=== PATIENT | female | born 1950 | race Caucasian/White ===

== ENCOUNTER 2016-03-15 11:49 | Emergency (ER) | payer OTHER ==
[2016-03-15] MEDS ORDERED: IOPAMIDOL 300 (61%) 100 ML VIAL IV ONE (11:50)
[2016-03-15 13:22] LABS: ABSOLUTE NEUTROPHIL COUNT 6.9 K/mm3 (1.8-7.7); BASO % 0.2 % (0.2-1.0); EOS % 0.2 % (0.9-2.9); HEMATOCRIT 33.7 % (37.0-47.0); HEMOGLOBIN 11.3 gm/l (12.0-16.0); IMM NEUT% 0.4 % (0-1); LYMPH # 0.5 (1.0-4.8); LYMPH % 5.7 % (15-45); MEAN CELL VOLUME 93.9 fl (81.0-99.0); MEAN CORPUSCULAR HEMOGLOBIN 31.5 pg (27.0-31.0); MEAN CORPUSCULAR HGB CONC 33.5 g/dl (33.0-37.0); MEAN PLATELET VOLUME 9.2 fl (7.4-10.4); MONO # 0.7 (0.0-0.8); MONO % 8.4 % (4-12); NEUT % 85.1 % (43-75); PLATELET COUNT 273 K/mm3 (130-400); RED CELL DISTRIBUTION WIDTH 14.6 % (11.5-14.5)
[2016-03-15 13:33] LABS: ALB/GLOB RATIO 1.3 (>1.0); ALBUMIN 3.2 gm/dL (3.5-5.7); CALCIUM 8.5 mg/dL (8.6-10.3)
[2016-03-15 14:17] LABS: TROPONIN I < 0.01 ng/ml (0.0-0.06)
[2016-03-15 14:26] LABS: THYROID STIMULATING HORMONE 2.46 uIU/ml (0.34-5.60)
--- NOTE | 2016-03-15 14:33 | CT ---
Name: TUCKER PAZ Exam: CT abdomen pelvis with contrast Comparison: 03/21/2014 History: Abdominal distention Procedure: Helical CT using multidetector technique was applied to the abdomen and pelvis during intravenous administration of 100 cc Isovue-300. No oral contrast was given per ordering physician. An automated dose reduction technique was used to minimize patient radiation dose. Findings: CT abdomen (contrast enhanced): There is mild atelectasis and/or scar in the lung bases. Heart is not enlarged. There is no pericardial effusion. Had a megaly is identified. There is new diffuse heterogeneity of the liver which is most prominent in the right hepatic lobe. In the right hepatic lobe, the most confluent area of low-density is approximately 10 cm in size. There is no biliary dilation. Gallbladder is not identified. Pancreas, spleen, adrenal glands, kidneys, aorta and IVC are normal. The portal vein is widely patent. There is trace ascites. There is no free air or abscess. Vascular calcifications are identified. Advanced multilevel degenerative facet disease is noted. Body wall edema is present. There is a small fat filled umbilical hernia. CT pelvis (contrast enhanced): Bladder is nearly empty. Normal size uterus is to the right. Ovaries are not clearly identified. There is mild ascites. Appendix, small bowel and colon are within normal limits. Vascular calcifications are present. Body wall edema is noted. Fluid extends down the right femoral canal Impression: 1. Hepatomegaly with marked heterogeneity and nodularity new from the prior exam. Differential considerations include metastatic disease, primary liver tumor with metastasis or severe fatty change. 2. Nonvisualization of the gallbladder. There is no biliary dilation 3. Trace free fluid. Spleen is normal size 4. Diffuse body wall edema 5. Nonvisualization of the ovaries 6. Normal appendix. There is no bowel obstruction 7. Severe multilevel degenerative facet disease Note: The above report was uploaded to [facility]'s electronic medical records system at 1429 hours.
[2016-03-15] MEDS ORDERED: SODIUM CHLORIDE 0.9% 1,000 ML ONE (15:27)
[2016-03-15] MEDS ORDERED: ONDANSETRON 4 MG/2ML 2 ML VIAL ONE (16:27)
[2016-03-15 16:31] LABS: SPECIFIC GRAVITY 1.005 (1.001-1.030); URINE BILIRUBIN 2+ (NEGATIVE); URINE BLOOD NEGATIVE (NEGATIVE); URINE GLUCOSE (UA) NEGATIVE (NEGATIVE); URINE LEUKOCYTE ESTERASE NEGATIVE (NEGATIVE); URINE NITRITE NEGATIVE (NEGATIVE); URINE PROTEIN NEGATIVE (NEGATIVE)
[2016-03-15 16:32] LABS: URINE APPEARANCE CLEAR; URINE COLOR DARK YELLOW; URINE UROBILINOGEN 4 mg/dL (0-1 mg/dl)
== END 2016-03-15 19:36 | disposition home or self-care (01) ==
LOC: ED 11:49
DX: R16.0 Hepatomegaly, not elsewhere classified (principal); E87.1 Hypo-osmolality and hyponatremia; E07.9 Disorder of thyroid, unspecified; G47.00 Insomnia, unspecified; Z85.89 Personal history of malignant neoplasm of other organs and systems; Z88.1 Allergy status to other antibiotic agents; Z88.5 Allergy status to narcotic agent
CPT/HCPCS: 83690; 85025; 80053; 81003; 84443; 84484; 74177; 99285 ×2; 96374; 96361 ×2; J2405; J7030; Q9967